=== PATIENT | female | born 1990 | race Caucasian/White ===

== ENCOUNTER 2020-01-01 05:50 | Day surgery (SDC) | payer BC ==
[~2020-01-01] VITALS: Ht 162.6 cm; Wt 57.2 kg
[~2020-01-01 05:50] MED LIST: HYDR-2761 PO; IBUP-1027 PO; LACT1CAP29 PO; ceFAZolin SODIUM IV Push 1 GM VIAL. IVP PRN
[2020-01-01] MEDS: IV RINGERS,LACTATED 1000ML 1,000 ML IV SCH ×2 (06:43→09:46)
[2020-01-01] MEDS ORDERED: ROPIVacaine 0.5% PF 20 ML VIAL. ONE (07:08)
[2020-01-01] MEDS ORDERED: BUPIVACAINE MPF 0.5% 30 ML VIAL. ONE (07:08)
[2020-01-01] MEDS ORDERED: LIDOCAINE 2% PF 5 ML VIAL. ONE (07:31)
[2020-01-01] MEDS ORDERED: FAMOTIDINE 20 MG/2 ML VIAL ONE (07:31)
[2020-01-01] MEDS ORDERED: fentaNYL PF VIAL 100 MCG/2 ML VIAL ONE ×2 (07:31→09:22)
[2020-01-01] MEDS ORDERED: DEXAMETHASONE SOD PHOS 4 MG/ML VIAL ONE (07:31)
[2020-01-01] MEDS ORDERED: MIDAZOLAM HCL/PF 2 MG/2 ML VIAL. ONE (07:31)
[2020-01-01] MEDS ORDERED: KETOROLAC 30 MG/ML VIAL. ONE (07:31)
[2020-01-01] MEDS ORDERED: PROPOFOL 20 ML IV ONE (07:31)
[2020-01-01] MEDS ORDERED: SUCCINYLCHOLINE 200 MG/10 ML VIAL. ONE (07:31)
[2020-01-01] MEDS ORDERED: ONDANSETRON PF 4 MG/2 ML VIAL. ONE (07:31)
[2020-01-01] MEDS ORDERED: HYDR-3165 PO (07:39)
--- NOTE | 2020-01-01 07:44 | DISCH ---
DISCHARGE INSTRUCTIONS Condition on Discharge Condition on Discharge: Stable Activity After Discharge Activity Instructions for Disc: Other, see below (Fine motor use of left hand, can hold silverware right type and squeeze on a stress ball etc.) Lifting Instructions after Dis: No heavy lifting, No pulling or pushing Weight Bearing Status after Di: Partial weight bearing Diet after Discharge Diet after Discharge: Regular Wound Incision Care Wound/Incision Care: Ice to area for comfort, Keep wound elevated, Do not change dressing (Keep splint on until follow-up unless soiled or appointment delayed) Contacting the DRDamon after DC Call your doctor for: Concerns you may have Follow-Up Follow up with: Dr. Mark 1 week ABE MARK MD Jan 01, 2020 07:44
[2020-01-01] MEDS ORDERED: SEVOFLURANE 61 TO 120 MINUTES. IH ONE (09:07)
[2020-01-01] MEDS ORDERED: PROCHLORPERAZINE 10 MG/2 ML VIAL. ONE (09:22)
[2020-01-01] MEDS ORDERED: IV RINGERS,LACTATED 1000ML 1,000 ML IV SCH (09:28)
[2020-01-01] MEDS ORDERED: fentaNYL PF VIAL 100 MCG/2 ML VIAL IV PRN (09:30)
[2020-01-01] MEDS ORDERED: ONDANSETRON PF 4 MG/2 ML VIAL. IV PRN (09:30)
[2020-01-01] MEDS ORDERED: PROCHLORPERAZINE 10 MG/2 ML VIAL. IV PRN (09:30)
[2020-01-01] MEDS ORDERED: MORPHINE SULFATE 2 MG/ML VIAL. IV PRN (09:30)
[2020-01-01] MEDS ORDERED: HYDROmorphone 2 MG/ML VIAL IV PRN (09:30)
[2020-01-01] MEDS: fentaNYL PF VIAL 100 MCG/2 ML VIAL IV PRN ×2 (09:46→10:04)
[2020-01-01 10:15] VITALS: BP 137/78
[2020-01-01] MEDS ORDERED: HYDROcodone/APAP 7.5/325MG 1 TAB TABLET PO ONE (10:15)
--- NOTE | 2020-01-01 22:02 | PDOC4 ---
Operative Note Operative Note Date of surgery: 01/01/2020 Preoperative diagnosis: Displaced intra-articular left distal radius fracture Postoperative diagnosis: Same Operative procedure: Operative reduction internal fixation 2 part left distal intra-articular radius fracture Surgeon: Jas Hoister: Estuardo Oreilly nurse practitioner Anesthesia: General Estimated blood loss: 5 cc Complications: None Operative indications: Please see my dictated orthopedic consultation for detailed operative indications and note that she presented to clinic with a displaced intra-articular distal radius fracture which we discussed was at risk for healing and poor alignment and development of premature degenerative change as well as functional problems with her wrist. We talked about the possibility of surgical treatment infection nerve or blood vessel damage nonhealing and some possibility of stiffness premature degenerative change even under the best of circumstances. All her questions were answered and she wishes to proceed with surgical evaluation and treatment. Operative text: Patient was identified procedure verified patient placed in the supine position on the operating table. After adequate amounts of general anesthesia were administered the left upper extremity was prepped and draped in standard sterile fashion with an upper arm tourniquet. After timeout was performed patient procedure identified and verified the left upper extremity was exsanguinated Esmarch bandage tourniquet inflated to 250 mmHg and a volar Alpesh approach was carried out to the distal radius. A short narrow Clem DVR distal radial locking plate was selected and after the wrist underwent open reduction under fluoroscopic guidance the plate was placed and a shaft screw was initially placed in the sliding hole but then loosened to allow placement of distal locking screws with the proximal plate elevated somewhat and after placement of distal locking screws the volar tilt was reestablished by securing the plate to the radial shaft proximal row locking screws were then placed along with additional nonlocking shaft screws and excellent reduction was noted under multiple fluoroscopic views and locking screws were noted to be placed properly extra-articular and verified individually in terms of length. Thorough irrigation carried out normal saline solution subcutaneous closure with buried V icryl sutures subcuticular Monocryl and a well-padded volar splint with underlying sterile dressings were placed. Fingers were noted be warm pink following deflation of the tourniquet and patient was returned to recovery room in stable condition having tolerated procedure well. Estuardo Oreilly nurse practitioner was present for the procedure and assisted in patient positioning prepping draping retraction wound closure and dressing placement ABE PEÑALOZA MD Jan 01, 2020 22:02
== END 2020-01-01 11:08 | disposition home or self-care (01) ==
LOC: SURG 05:50
PROVIDERS: ATTEND Orthopaedic Surgery
DX: S52.572A Other intraarticular fracture of lower end of left radius, initial encounter for closed fracture (principal); Z72.89 Other problems related to lifestyle; X58.XXXA Exposure to other specified factors, initial encounter; Y93.89 Activity, other specified; Y92.89 Other specified places as the place of occurrence of the external cause; Y99.8 Other external cause status
CPT/HCPCS: 25608; 76000; 81025; A7015; C1713; J0330; J0690; J0780; J1100; J1885; J2250; J2405; J2704; J3010; J3490; J7120; J2795; A4565